=== PATIENT | female | born 1950 ===

== ENCOUNTER 2018-04-06 09:35 | Day surgery (SDC) | payer MEDICARE, OTHER ==
[~2018-04-06] VITALS: Ht 160 cm; Wt 82.5 kg
[~2018-04-06 09:35] MED LIST: CALCIUM 500 +1 EAC4 PO; GLUCOSAMINE CO1 EACH PO; LUTEIN40 MG PO; OMEPRAZOLE20 MG PO
== END 2018-04-06 11:10 | disposition home or self-care (01) ==
LOC: OPS 09:35 → DSVR 09:35 → DS 10:45 → OPS 11:10
PROVIDERS: Ophthalmology
PROC: 08RK3JZ Replacement of Left Lens with Synthetic Substitute, Percutaneous Approach (ICD-10-PCS; principal; 2018-04-06 10:45)
DX: H25.813 Combined forms of age-related cataract, bilateral (principal); F17.210 Nicotine dependence, cigarettes, uncomplicated; J45.909 Unspecified asthma, uncomplicated; M19.90 Unspecified osteoarthritis, unspecified site; K21.9 Gastro-esophageal reflux disease without esophagitis; Z79.899 Other long term (current) drug therapy